=== PATIENT | female | born 1980 ===

== ENCOUNTER 2016-07-29 11:55 | Day surgery (SDC) | payer OTHER ==
[2016-07-26 10:06] LABS: HEMATOCRIT 41.1 % (36.0-47.0); HEMOGLOBIN 13.8 g/dL (12.0-15.5); HGB HCT DIFFERENCE 0.3; MEAN CORPUSCULAR HEMOGLOBIN 31.5 pg (27.0-33.4); MEAN CORPUSCULAR HGB CONC 33.5 g/dL (32.0-36.0); MEAN CORPUSCULAR VOLUME 94 fl (80-97); RED BLOOD COUNT 4.38 10^6/uL (3.72-5.28); RED CELL DISTRIBUTION WIDTH 12.2 % (11.5-14.0); WHITE BLOOD COUNT 6.7 10^3/uL (4.0-10.5)
[2016-07-26 10:14] LABS: APPEARANCE,URINE CLEAR; BILIRUBIN,URINE NEGATIVE (NEGATIVE); GLUCOSE, URINE NEGATIVE (NEGATIVE); KETONES,URINE NEGATIVE (NEGATIVE); LEUKOCYTE ESTERASE,URINE NEGATIVE (NEGATIVE); NITRITE,URINE NEGATIVE (NEGATIVE); PROTEIN,URINE NEGATIVE (NEGATIVE); URINE SPECIFIC GRAVITY 1.019; UROBILINOGEN,URINE NEGATIVE mg/dL (<2.0)
[2016-07-26 10:24] LABS: ALANINE AMINOTRANSFERASE 21 U/L (9-52); ALBUMIN 4.9 g/dL (3.5-5.0); ALKALINE PHOSPHATASE 64 U/L (38-126); ANION GAP 15 (5-19); ASPARTATE AMINO TRANSFERASE 21 U/L (14-36); BILIRUBIN,DIRECT 0.3 mg/dL (0.0-0.4); BILIRUBIN,TOTAL 0.5 mg/dL (0.2-1.3); BLOOD UREA NITROGEN 17 mg/dL (7-20); CALCIUM 9.8 mg/dL (8.4-10.2); CARBON DIOXIDE 24 mmol/L (22-30); CHLORIDE 103 mmol/L (98-107); CREATININE RESULT 0.73 mg/dL (0.52-1.25); GLUCOSE 102 mg/dL (75-110); POTASSIUM 4.7 mmol/L (3.6-5.0); SODIUM 141.6 mmol/L (137-145); TOTAL PROTEIN 7.7 g/dL (6.3-8.2)
[~2016-07-29 11:55] MED LIST: DEXAMETHASONE SOD PHOSPHATE INJ 4 MG/1 ML VIAL ONE; DOXYCYCLINE HYCLATE 100 MG TABLET PO PRN; LACTATED RINGERS 1000 ML IV PRN; LIDOCAINE 0.5% INJ-PF (5 MG/ML) 50 ML SDV SUBCUT PRN; LIDOCAINE 2% INJ-PF (20 MG/ML) 10 ML AMPUL ONE; METOCLOPRAMIDE HCL INJ/PF 10 MG/2 ML SDV ONE; ONDANSETRON HCL INJ/PF 4 MG/2 ML SDV ONE; SUCCINYLCHOLINE CHLORIDE INJ 200 MG/10 ML VIAL ONE
[2016-07-29] MEDS ORDERED: MIDAZOLAM 2 MG/2 ML INJ ONE ×2 (13:05→13:10)
[2016-07-29] MEDS ORDERED: FENTANYL CITRATE INJ/PF 250 MCG/5 ML AMPULE ONE (13:05)
[2016-07-29] MEDS ORDERED: PROPOFOL INJ 200 MG/20 ML VIAL IV ONE (13:06)
[2016-07-29] MEDS ORDERED: EPHEDRINE SULFATE INJ 50 MG/1 ML AMPULE ONE (13:06)
[2016-07-29] MEDS ORDERED: ACETAMINOPHEN 100 ML IV ONE (13:06)
[2016-07-29] MEDS ORDERED: FAMOTIDINE INJ/PF 20 MG/2 ML SDV IV ONE (13:10)
[2016-07-29] MEDS ORDERED: DEXAMETHASONE SOD PHOSPHATE INJ 4 MG/1 ML VIAL ONE (13:15)
[2016-07-29] MEDS ORDERED: SCOPOLAMINE HYDROBROMIDE 1.5 MG PATCH.TD72 ONE (13:15)
[2016-07-29] MEDS ORDERED: DOXYCYCLINE HYCLATE 100 MG in DEXTROSE 5%-WATER 250 ML IV PRN (13:16)
[2016-07-29] MEDS ORDERED: IPRATROPIUM/ALBUTEROL 0.5-2.5 MG/3 ML AMPUL NEB ONE (13:18)
[2016-07-29] MEDS ORDERED: RINGERS SOLUTION,LACTATED 1,000 ML IV ONE (13:45)
[2016-07-29] MEDS ORDERED: MEPERIDINE HCL/PF INJ 25 MG/1 ML DISP.SYRIN IV PRN (14:50)
[2016-07-29] MEDS ORDERED: MORPHINE SULFATE 10 MG/ML INJ IV PRN (14:50)
[2016-07-29] MEDS ORDERED: FENTANYL CITRATE INJ/PF 100 MCG/2 ML AMPUL IV PRN ×3 (14:50)
[2016-07-29] MEDS ORDERED: OXYCODONE-ACETAMINOPHEN 5-325 MG TABLET PO PRN ×3 (14:50→15:45)
[2016-07-29] MEDS ORDERED: ONDANSETRON HCL INJ/PF 4 MG/2 ML SDV IV PRN ×2 (14:50→15:46)
[2016-07-29] MEDS ORDERED: DIPHENHYDRAMINE HCL 50 MG/ML VIAL IV PRN (14:50)
[2016-07-29] MEDS ORDERED: PROMETHAZINE HCL INJ 25 MG/1 ML VIAL IV PRN ×2 (14:50)
--- NOTE | 2016-07-29 15:25 | PDOC DISCHARGE SUMMARY ---
Discharge Summary (SDC) - Discharge Final Diagnosis: Endouterine mass Abnormal uterine bleeding Date of Surgery: 07/29/16 Discharge Date: 07/29/16 Condition: Good Forms: Post Operative Treatment or Instructions: Hysteroscopic resection of uterine cavity mass Prescriptions: Ondansetron HCl [Zofran 4 mg Tablet] 1 - 2 tab PO Q4H PRN #10 tablet PRN Reason: Oxycodone HCl/Acetaminophen [Percocet 5-325 mg Tablet] 1 - 2 tab PO ASDIR PRN # 15 tablet PRN Reason: Referrals: CARLITA EDWARD MD [NO LOCAL MD] - (Call LIZETTE Horowitz at [phone] to schedule your post-operative follow up for 2 weeks after surgery. You may also call her with any concerns/questions. ) Discharge Diet: As Tolerated Respiratory Treatments at Home: Deep Breathing/Coughing Discharge Activity: Activity As Tolerated, Balance Activity w/Rest, Pelvic Rest , Slowly Increase Activity, No tub bath - you may shower Home Care Assistance: None Needed Report the Following to Your Physician Immediately: Vomiting, Increase in Pain, Fever over 101 Degrees, Unusual Bleeding, Drainage-Foul Smelling, Increased Vaginal Bleed
[2016-07-29 17:54] VITALS: BP 120/73
--- NOTE | 2016-07-31 17:33 | OPERATIVE REPORT E ---
Operative Report NAME: TOAN JONES : 1980 AGE: 36Y DATE OF SURGERY: 07/29/2016 ROOM: PREOPERATIVE DIAGNOSES: A 2.5 cm uterine intracavitary mass thought to be endometrial polyp versus pedunculated endometrial fibroid submucosal type, abnormal uterine bleeding, and infertility. POSTOPERATIVE DIAGNOSES: A 2.5 cm uterine intracavitary mass thought to be endometrial polyp versus pedunculated endometrial fibroid submucosal type, abnormal uterine bleeding, and infertility. OPERATION: Hysteroscopic resection of the intrauterine mass. SURGEON: CARLITA EDWARD M.D. ANESTHESIA: MAC. COMPLICATIONS: None. ESTIMATED BLOOD LOSS: 5 mL. URINE OUTPUT: 150 mL clear at the beginning of the procedure. FLUID DEFICIT: Less than 50 mL of normal saline. SPECIMENS: Intrauterine mass. FINDINGS: Upon hysteroscopic examination of the uterine cavity, the 2 cm solid, smooth, well-circumscribed and pedunculated mass was visualized in the uterine cavity. Its attachment was to the anterior superior aspect of the uterine wall towards the patient's left hand side. Both tubal ostia were visualized. The cavity was otherwise noted to be normal. INDICATIONS AND INFORMED CONSENT: The risks, benefits, and alternatives of hysteroscopy and resection of the mass were discussed with the patient including but not limited to infection, allergic reaction, scar, severe blood loss, injury to other organs, perforation to the uterus, damage to the cervix, tubes or ovaries, bladder or ureters, need for a second operation or potential for inability to get or inability to carry to term, need for a blood transfusion or possible need for a laparotomy to complete the surgery or any repair. Alternatives including but not limited to observation, medical management, and other surgical approaches were discussed with the patient and she consented to the above procedure. PROCEDURE: The patient was taken to the operating room where anesthesia was undertaken. She was prepped and draped in the usual sterile fashion in the dorsal lithotomy position. A surgical time-out was then held. An in-and-out catheter was used to drain the bladder. A weighted speculum was placed in the vagina but the vagina was found to be too long to adequately reach the cervix so this instrument was removed. An open-sided speculum was then placed and the cervix was visualized. The anterior lip of the cervix was grasped and pulled into view with single-tooth tenaculum. The uterus was sounded to 8 cm with easy passage of the uterine sound. After the hysteroscope was set up and primed with normal saline, it was placed into the cervical os and advanced slowly into the uterine cavity under direct visualization using hydrodissection as a means of dilation. An inspection of the uterine cavity revealed the above findings. Several pictures were taken. At this point the MyoSure device was placed through the operative hysteroscope. The MyoSure was activated by the foot pedal and used to remove slowly the 2.[address] to the base until it was flush with the rest of the uterine endometrium. Further pictures were taken to document the before and after as well as the tubal ostia. At this point all instruments were removed from the uterus and the vagina and hemostasis of the cervix was observed and ensured using silver nitrate. At the end of the procedure, total fluid deficit was noted above. Sponge and instrument counts were correct at the end of the procedure and the patient was taken to recovery in stable condition. DICTATING PHYSICIAN: CARLITA EDWARD M.D. [id number] PHY#: [id number] ID: [id number] JOB#: [id number] ACCT: [id number] cc:CARLITA EDWARD M.D. >
== END 2016-07-29 17:55 | disposition home or self-care (01) ==
LOC: OROUT 11:55
PROVIDERS: ATTEND Obstetrics & Gynecology
PROC: 0UB98ZX Excision of Uterus, Via Natural or Artificial Opening Endoscopic, Diagnostic (ICD-10-PCS; principal; 2016-07-29 13:30)
DX: N93.9 Abnormal uterine and vaginal bleeding, unspecified (principal); N84.0 Polyp of corpus uteri; N97.9 Female infertility, unspecified; J45.909 Unspecified asthma, uncomplicated; M79.7 Fibromyalgia; Z88.6 Allergy status to analgesic agent; Z88.8 Allergy status to other drugs, medicaments and biological substances
CPT/HCPCS: 58561; 86900; 86901; 36415; 86850; 85027; 81025; 80053; 81001; 88305 ×2; 94640; J2250; J1100; J3490 ×2; J3010; J2765; J0330; J2405; J7060; J2704; S0028; J7620; J0131; 952